=== PATIENT | female | born 1945 | race Caucasian/White ===

== ENCOUNTER 2017-07-18 19:58 | Emergency (ER) | payer MEDICARE, OTHER ==
[~2017-07-18] VITALS: Ht 154.9 cm; Wt 77.7 kg
[~2017-07-18 19:58] MED LIST: DULO60CA44 PO; LISI-662 PO
[2017-07-18] MEDS ORDERED: LEVO100 PO (20:21)
[2017-07-18] MEDS ORDERED: TRAZ-147 PO (20:21)
[2017-07-18] MEDS ORDERED: CYCL10 PO (20:21)
[2017-07-18] MEDS ORDERED: VITAD1000 PO (20:21)
[2017-07-18] MEDS ORDERED: TRAZ150 PO (20:21)
[2017-07-18] MEDS ORDERED: MELA1TAB28 PO (20:21)
[2017-07-18] MEDS ORDERED: DULO30CA2 PO (20:21)
[2017-07-18] MEDS ORDERED: MET500 PO (20:21)
[2017-07-18] MEDS ORDERED: FERR-89 PO (20:21)
[2017-07-18] MEDS ORDERED: METO50 PO (20:21)
[2017-07-18] MEDS ORDERED: LISI-662 PO (20:21)
[2017-07-18] MEDS ORDERED: ALLO100T PO (20:21)
[2017-07-18] MEDS ORDERED: LORazepam 1 MG TABLET PO ONE (21:45)
[2017-07-18 22:09] VITALS: BP 182/95
[2017-07-18] MEDS ORDERED: HYDROCODONE/ACETAMINOPHEN 5-325 MG TABLET PO ONE (22:15)
== END 2017-07-18 22:48 | disposition home or self-care (01) ==
LOC: EMS 19:59
DX: M54.5 Low back pain (principal); G89.29 Other chronic pain; I10 Essential (primary) hypertension; E03.9 Hypothyroidism, unspecified; M10.9 Gout, unspecified; Z98.890 Other specified postprocedural states; Z79.899 Other long term (current) drug therapy; Z88.8 Allergy status to other drugs, medicaments and biological substances; W01.0XXA Fall on same level from slipping, tripping and stumbling without subsequent striking against object, initial encounter; Y93.89 Activity, other specified; Y92.89 Other specified places as the place of occurrence of the external cause; Y99.8 Other external cause status
CPT/HCPCS: 73503; 99284

== ENCOUNTER 2017-07-20 16:05 | Emergency (ER) | payer OTHER ==
[~2017-07-20] VITALS: Ht 160 cm; Wt 79.5 kg
[~2017-07-20 16:05] MED LIST changes: +ALLO100T PO; +CYCL10 PO; +DULO30CA2 PO; -DULO60CA44 PO; +FERR-89 PO; +LEVO100 PO; +MELA1TAB28 PO; +MET500 PO; +METO50 PO; +TRAZ-147 PO; +TRAZ150 PO; +VITAD1000 PO
[2017-07-20] MEDS ORDERED: LOPERAMIDE HCL 2 MG CAPSULE PO ONE (18:15)
[2017-07-20] MEDS ORDERED: OxyCODONE HCL/ACETAMINOPHEN 5-325 MG TABLET PO ONE (18:15)
[2017-07-20 18:40] VITALS: BP 152/86
== END 2017-07-20 19:11 | disposition home or self-care (01) ==
LOC: EMS 16:07
DX: G89.29 Other chronic pain (principal); M54.5 Low back pain; F41.9 Anxiety disorder, unspecified; I10 Essential (primary) hypertension; E03.9 Hypothyroidism, unspecified; M10.9 Gout, unspecified
CPT/HCPCS: 99283